=== PATIENT | female | born 1990 | race Caucasian/White ===

== ENCOUNTER 2017-09-03 07:00 | Day surgery (SDC) | payer MEDICAID ==
[~2017-09-03] VITALS: Ht 160 cm; Wt 61.1 kg
[~2017-09-03 07:00] MED LIST: ACET500T71 PO; ACID1TAB7 PO; CEFA2PLA10 IV; FOLI-17 PO; GABA-826 PO; IBUP-1484 PO; MULT1TAB60 PO; NICO-486 TD; OXYC1TAB7 PO; THIA100T6 PO
[2017-09-03] MEDS ORDERED: SODIUM CHLORIDE 0.9% 1,000 ML IV SCH (07:31)
[2017-09-03 07:32] VITALS: BP 109/75
[2017-09-03] MEDS ORDERED: LIDOCAINE-MPF 1%, 5ML ONE (08:09)
== END 2017-09-03 09:30 ==
LOC: OUT 07:00
PROVIDERS: ATTEND Internal Medicine Geriatric Medicine
DX: Z45.2 Encounter for adjustment and management of vascular access device (principal); L02.511 Cutaneous abscess of right hand; Z72.89 Other problems related to lifestyle
CPT/HCPCS: 36589; 77001; J7030

== ENCOUNTER 2017-12-02 15:24 | Inpatient (IN) | payer MEDICAID, OTHER ==
[~2017-12-02] VITALS: Ht 160 cm; Wt 63.2 kg
[2017-12-02] MEDS ORDERED: ONDANSETRON 2MG/ML, 2ML IVPush ONE (16:00)
[2017-12-02] MEDS ORDERED: LORazepam 2 MG/ML, 1ML IVPush ONE ×2 (16:00)
[2017-12-02] MEDS ORDERED: SODIUM CHLORIDE 0.9% 1,000ML IVBOLUS ONE ×2 (16:00→18:00)
[2017-12-02] MEDS ORDERED: SODIUM CHLORIDE FLUSH 10ML SYR IVF ONE (16:00)
[2017-12-02] MEDS ORDERED: CITA10TA8 PO (16:05)
[2017-12-02] MEDS ORDERED: ONDANSETRON 2MG/ML, 2ML ONE (16:17)
[2017-12-02] MEDS ORDERED: LORazepam 2 MG/ML, 1ML ONE (16:17)
[2017-12-02 16:27] LABS: ALANINE AMINOTRANSFERASE 112 U/L (12-78); ALBUMIN 4.7 g/dL (3.4-5.0); ANION GAP 19 mmol/L (5-15); CALCIUM 9.6 mg/dL (8.5-10.1); CHLORIDE 98 mmol/L (98-107); CREATININE 0.73 mg/dL (0.55-1.02)
[2017-12-02 16:30] LABS: BASOPHILS # (AUTO) 0.02 x10^3/uL (0-0.1); BASOPHILS % (AUTO) 1 % (0-1); EOSINOPHILS # (AUTO) 0.01 x10^3/uL (0-0.4); EOSINOPHILS % (AUTO) 0 % (1-7); LYMPHOCYTES # (AUTO) 0.94 x10^3/uL (1-3.4); LYMPHOCYTES % (AUTO) 25 % (22-44); MD NO; MEAN CORPUSCULAR HEMOGLOBIN 30.8 pg (27.0-34.8); MEAN CORPUSCULAR HGB CONC 33.9 g/dL (32.4-35.8); MEAN CORPUSCULAR VOLUME 90.6 fL (80-100); MEAN PLATELET VOLUME 7.7 fL (7.4-10.4); MONOCYTES # (AUTO) 0.51 x10^3/uL (0.2-0.8); MONOCYTES % (AUTO) 14 % (2-9); NEUTROPHILS % (AUTO) 60 % (42-75); PLATELET COUNT 179 x10^3/uL (130-400); RED BLOOD COUNT 5.05 x10^6/uL (3.82-5.3); RED CELL DISTRIBUTION WIDTH 16.9 % (9.6-15.2)
[2017-12-02] MEDS ORDERED: THIAMINE 100MG TABLET PO ONE (16:30)
[2017-12-02 16:32] LABS: ALKALINE PHOSPHATASE 152 U/L (45-117); BILIRUBIN,TOTAL 0.9 mg/dL (0.2-1.0); TOTAL PROTEIN 8.6 g/dL (6.4-8.2)
[2017-12-02] MEDS ORDERED: THIAMINE 100MG TABLET ONE (17:51)
[2017-12-02] MEDS ORDERED: DIAZEPAM 5 MG/ML, 2ML IVPush PRN (18:00)
[2017-12-02] MEDS ORDERED: morphine SULFATE 10 MG/ML, 1ML IVPush PRN (18:30)
[2017-12-02] MEDS: HEPARIN 5,000 UNITS/ML, 1ML SQ SCH (18:30)
[2017-12-02] MEDS ORDERED: LORazepam 2 MG/ML, 1ML IVPush PRN (18:30)
[2017-12-02] MEDS ORDERED: CHLORDIAZEPOXIDE 25 MG CAPSULE PO PRN (18:30)
[2017-12-02] MEDS ORDERED: ONDANSETRON 2MG/ML, 2ML IVPush PRN (18:30)
[2017-12-02] MEDS ORDERED: BISACODYL 10 MG SUPP PR PRN (18:30)
[2017-12-02 19:24] VITALS: BP 99/62
[2017-12-02] MEDS ORDERED: POTASSIUM CHLORIDE 20 MEQ, MAGNESIUM SULFATE 2 GM, THIAMINE 200 MG, MVI ADULT 10 ML, FO... IV SCH (20:00)
[2017-12-02] MEDS: NICOTINE 14MG/24 HR PATCH.TD24 TD SCH (21:14)
[2017-12-03] MEDS: HEPARIN 5,000 UNITS/ML, 1ML SQ SCH ×3 (02:30→22:49)
[2017-12-03 03:04] VITALS: BP 97/59
[2017-12-03 04:39] LABS: MEAN CORPUSCULAR HEMOGLOBIN 30.2 pg (27.0-34.8); MEAN CORPUSCULAR HGB CONC 33.6 g/dL (32.4-35.8); MEAN PLATELET VOLUME 7.5 fL (7.4-10.4); PLATELET COUNT 116 x10^3/uL (130-400); RED BLOOD COUNT 3.76 x10^6/uL (3.82-5.3); RED CELL DISTRIBUTION WIDTH 17.2 % (9.6-15.2)
[2017-12-03 04:45] LABS: ALBUMIN 3.3 g/dL (3.4-5.0); ANION GAP 11 mmol/L (5-15); CALCIUM 7.5 mg/dL (8.5-10.1); CHLORIDE 106 mmol/L (98-107)
[2017-12-03 04:50] LABS: ALANINE AMINOTRANSFERASE 89 U/L (12-78); ALKALINE PHOSPHATASE 105 U/L (45-117); BILIRUBIN,TOTAL 0.9 mg/dL (0.2-1.0); CREATININE 0.43 mg/dL (0.55-1.02)
[2017-12-03 05:50] LABS: MD YES
[2017-12-03 05:54] LABS: EOS#(MANUAL) 0.05 x10^3/uL (0.0-0.4); EOS% (MANUAL) 2 % (1-7)
[2017-12-03 05:55] LABS: BASOS#(MANUAL) 0.05 x10^3/uL (0-0.1); BASOS% (MANUAL) 2 % (0-1); LYMPH#(MANUAL) 0.81 x10^3/uL (1-3.4); LYMPHS% (MANUAL) 35 % (22-44); MONOS#(MANUAL) 0.21 x10^3/uL (0.3-2.7); MONOS% (MANUAL) 9 % (2-9); SEGS% (MANUAL) 52 % (42-75)
[2017-12-03 05:56] LABS: <PLATELET ESTIMATE> DECREASED; <PLT MORPHOLOGY> NORMAL PLT MORPH; ANISOCYTOSIS 1+
[2017-12-03 08:25] VITALS: BP 114/76
[2017-12-03] MEDS ORDERED: LORazepam 2 MG/ML, 1ML IV PRN ×5 (08:30)
[2017-12-03] MEDS ORDERED: LORazepam 1MG TABLET PO PRN ×3 (08:30)
[2017-12-03] MEDS ORDERED: CHLORDIAZEPOXIDE 10 MG CAPSULE PO PRN ×2 (11:00)
[2017-12-03] MEDS ORDERED: GUAIFENESIN 100 MG/5 ML, 10ML UDC PO PRN (11:00)
[2017-12-03 13:44] VITALS: BP 132/66
[2017-12-03] MEDS: PANTOPRAZOLE 40 MG IV IVPush SCH (13:54)
[2017-12-03 19:02] VITALS: BP 122/86
[2017-12-03] MEDS: LORazepam 1MG TABLET PO PRN (21:01)
[2017-12-03] MEDS: NICOTINE 14MG/24 HR PATCH.TD24 TD SCH (21:01)
[2017-12-03] MEDS: POTASSIUM CHLORIDE 20 MEQ, MAGNESIUM SULFATE 1 GM, MVI ADULT 10 ML, THIAMINE 200 MG, FO... IV SCH (22:49)
[2017-12-04 01:45] VITALS: BP 123/89
[2017-12-04 05:54] LABS: MEAN PLATELET VOLUME 8.5 fL (7.4-10.4); PLATELET COUNT 101 x10^3/uL (130-400); RED BLOOD COUNT 4.01 x10^6/uL (3.82-5.3); RED CELL DISTRIBUTION WIDTH 16.8 % (9.6-15.2)
[2017-12-04 06:03] LABS: CHLORIDE 104 mmol/L (98-107)
[2017-12-04 06:10] LABS: ALANINE AMINOTRANSFERASE 118 U/L (12-78); ALBUMIN 3.5 g/dL (3.4-5.0); ALKALINE PHOSPHATASE 127 U/L (45-117); ANION GAP 9 mmol/L (5-15); BILIRUBIN,TOTAL 1.2 mg/dL (0.2-1.0); CALCIUM 8.6 mg/dL (8.5-10.1); CREATININE 0.45 mg/dL (0.55-1.02); TOTAL PROTEIN 6.6 g/dL (6.4-8.2)
[2017-12-04 06:17] LABS: BASOPHILS # (AUTO) 0.04 x10^3/uL (0-0.1); BASOPHILS % (AUTO) 2 % (0-1); EOSINOPHILS # (AUTO) 0.05 x10^3/uL (0-0.4); EOSINOPHILS % (AUTO) 2 % (1-7); LYMPHOCYTES # (AUTO) 0.74 x10^3/uL (1-3.4); LYMPHOCYTES % (AUTO) 34 % (22-44); MD SCAN; MONOCYTES % (AUTO) 9 % (2-9); NEUTROPHILS # (AUTO) 1.16 x10^3/uL (1.8-6.8); NEUTROPHILS % (AUTO) 53 % (42-75)
[2017-12-04] MEDS: HEPARIN 5,000 UNITS/ML, 1ML SQ SCH ×3 (06:19→21:31)
[2017-12-04 07:33] VITALS: BP 112/66
[2017-12-04] MEDS: PANTOPRAZOLE 40 MG IV IVPush SCH (08:51)
[2017-12-04] MEDS: LORazepam 1MG TABLET PO PRN ×2 (08:51→13:07)
[2017-12-04] MEDS ORDERED: NEUTRA PHOS K 250 MG TABLET PO ONE (12:30)
[2017-12-04 14:30] VITALS: BP 119/83
[2017-12-04] MEDS: CHLORDIAZEPOXIDE 10 MG CAPSULE PO SCH ×2 (16:00→21:00)
[2017-12-04 18:44] VITALS: BP 124/85
[2017-12-04] MEDS: NICOTINE 14MG/24 HR PATCH.TD24 TD SCH (21:31)
[2017-12-04] MEDS: POTASSIUM CHLORIDE 20 MEQ, MAGNESIUM SULFATE 1 GM, MVI ADULT 10 ML, THIAMINE 200 MG, FO... IV SCH (21:32)
[2017-12-05] MEDS: LORazepam 0.5MG TABLET PO PRN (00:29)
[2017-12-05 02:57] VITALS: BP 100/67
[2017-12-05 05:35] LABS: INTERNATIONAL NORMALIZED RATIO 0.9 (0.93-1.1); PROTHROMBIN TIME 9.4 Seconds (9.6-11.5)
[2017-12-05 05:38] LABS: MEAN CORPUSCULAR HEMOGLOBIN 30.9 pg (27.0-34.8); MEAN CORPUSCULAR HGB CONC 33.7 g/dL (32.4-35.8); MEAN CORPUSCULAR VOLUME 91.7 fL (80-100); MEAN PLATELET VOLUME 9.5 fL (7.4-10.4); PLATELET COUNT 107 x10^3/uL (130-400); RED BLOOD COUNT 4.32 x10^6/uL (3.82-5.3); RED CELL DISTRIBUTION WIDTH 16.5 % (9.6-15.2)
[2017-12-05 05:52] LABS: ALBUMIN 3.6 g/dL (3.4-5.0); ANION GAP 10 mmol/L (5-15); CALCIUM 8.8 mg/dL (8.5-10.1); CHLORIDE 105 mmol/L (98-107)
[2017-12-05] MEDS: HEPARIN 5,000 UNITS/ML, 1ML SQ SCH ×3 (06:00→20:54)
[2017-12-05 06:03] LABS: BASOPHILS # (AUTO) 0.02 x10^3/uL (0-0.1); BASOPHILS % (AUTO) 1 % (0-1); EOSINOPHILS # (AUTO) 0.04 x10^3/uL (0-0.4); EOSINOPHILS % (AUTO) 2 % (1-7); LYMPHOCYTES # (AUTO) 0.93 x10^3/uL (1-3.4); LYMPHOCYTES % (AUTO) 42 % (22-44); MD SCAN; MONOCYTES # (AUTO) 0.16 x10^3/uL (0.2-0.8); MONOCYTES % (AUTO) 7 % (2-9); NEUTROPHILS # (AUTO) 1.08 x10^3/uL (1.8-6.8); NEUTROPHILS % (AUTO) 48 % (42-75)
[2017-12-05 06:06] LABS: ALANINE AMINOTRANSFERASE 149 U/L (12-78); ALKALINE PHOSPHATASE 135 U/L (45-117); BILIRUBIN,TOTAL 0.8 mg/dL (0.2-1.0); CREATININE 0.42 mg/dL (0.55-1.02); TOTAL PROTEIN 6.8 g/dL (6.4-8.2)
[2017-12-05] MEDS: CHLORDIAZEPOXIDE 10 MG CAPSULE PO SCH ×3 (06:22→11:52)
[2017-12-05 08:30] VITALS: BP 102/68
[2017-12-05] MEDS: PANTOPRAZOLE 20MG TABLET PO SCH (08:35)
[2017-12-05] MEDS ORDERED: POTASSIUM CHLORIDE 20 MEQ TAB.ER.PRT PO ONE (09:00)
[2017-12-05 14:30] VITALS: BP 115/76
[2017-12-05] MEDS: LORazepam 1MG TABLET PO PRN ×2 (15:11→20:54)
[2017-12-05 19:39] VITALS: BP 114/81
[2017-12-05] MEDS: NICOTINE 14MG/24 HR PATCH.TD24 TD SCH (20:54)
[2017-12-06] MEDS: LORazepam 1MG TABLET PO PRN (00:57)
[2017-12-06 01:45] VITALS: BP 118/84
[2017-12-06 05:08] LABS: CHLORIDE 107 mmol/L (98-107)
[2017-12-06 05:17] LABS: ALANINE AMINOTRANSFERASE 189 U/L (12-78); ALBUMIN 3.5 g/dL (3.4-5.0); ALKALINE PHOSPHATASE 124 U/L (45-117); ANION GAP 9 mmol/L (5-15); BILIRUBIN,TOTAL 0.7 mg/dL (0.2-1.0); CREATININE 0.48 mg/dL (0.55-1.02); MEAN CORPUSCULAR HEMOGLOBIN 31.4 pg (27.0-34.8); MEAN CORPUSCULAR HGB CONC 34.2 g/dL (32.4-35.8); MEAN PLATELET VOLUME 9.4 fL (7.4-10.4); PLATELET COUNT 116 x10^3/uL (130-400); RED BLOOD COUNT 4.24 x10^6/uL (3.82-5.3); RED CELL DISTRIBUTION WIDTH 16.9 % (9.6-15.2); TOTAL PROTEIN 6.7 g/dL (6.4-8.2)
[2017-12-06] MEDS: HEPARIN 5,000 UNITS/ML, 1ML SQ SCH (05:42)
[2017-12-06] MEDS: LORazepam 0.5MG TABLET PO PRN (05:42)
[2017-12-06 06:16] LABS: BASOPHILS # (AUTO) 0.01 x10^3/uL (0-0.1); BASOPHILS % (AUTO) 0 % (0-1); EOSINOPHILS # (AUTO) 0.04 x10^3/uL (0-0.4); EOSINOPHILS % (AUTO) 1 % (1-7); LYMPHOCYTES # (AUTO) 1.02 x10^3/uL (1-3.4); LYMPHOCYTES % (AUTO) 34 % (22-44); MD SCAN; MONOCYTES % (AUTO) 10 % (2-9); NEUTROPHILS # (AUTO) 1.65 x10^3/uL (1.8-6.8); NEUTROPHILS % (AUTO) 55 % (42-75)
[2017-12-06] MEDS ORDERED: LORazepam 1MG TABLET PO PRN (07:30)
[2017-12-06 08:30] VITALS: BP 102/71
[2017-12-06] MEDS ORDERED: FOLIC ACID 1 MG TABLET PO SCH (09:00)
[2017-12-06] MEDS ORDERED: THIAMINE 100MG TABLET PO SCH (09:00)
[2017-12-06] MEDS ORDERED: MULTIVIT.W/IRON, MINERALS ORAL SOL PO SCH (09:00)
[2017-12-06] MEDS: PANTOPRAZOLE 20MG TABLET PO SCH (09:36)
== END 2017-12-06 12:57 | disposition home or self-care (01) | DRG 896 ==
LOC: ED 16:48 → EDIP 17:54 → 3NE 18:46
PROVIDERS: ADMIT Hospitalist; ATTEND Hospitalist
DX: F10.239 Alcohol dependence with withdrawal, unspecified (principal); K85.20 Alcohol induced acute pancreatitis without necrosis or infection; D61.818 Other pancytopenia; K29.20 Alcoholic gastritis without bleeding; K70.10 Alcoholic hepatitis without ascites; E83.39 Other disorders of phosphorus metabolism; F17.210 Nicotine dependence, cigarettes, uncomplicated; R56.9 Unspecified convulsions; Z59.0 Homelessness; Z91.14 Patient's other noncompliance with medication regimen
CPT/HCPCS: 36415; 99285; J7042; 71045; 76700; 80053; 80074; 83690; 83735; 84100; 84443; 84703; 85025; 85610; 93005; 96361; 96374; 96375; J1644; J2405; J3360; J3411; J3475; J3480; C9113; J2060; J7030; Q0177

== ENCOUNTER 2018-01-02 16:27 | Inpatient (IN) | payer MEDICAID, OTHER ==
[~2018-01-02] VITALS: Ht 160 cm; Wt 62.1 kg
[~2018-01-02 16:27] MED LIST changes: +CITA10TA8 PO; -THIA100T6 PO; +THIA100T67 PO
[2018-01-02 17:14] LABS: BASOPHILS # (AUTO) 0.03 x10^3/uL (0-0.1); BASOPHILS % (AUTO) 0 % (0-1); EOSINOPHILS % (AUTO) 0 % (1-7); LYMPHOCYTES # (AUTO) 0.73 x10^3/uL (1-3.4); LYMPHOCYTES % (AUTO) 9 % (22-44); MD NO; MEAN CORPUSCULAR HEMOGLOBIN 31.7 pg (27.0-34.8); MEAN CORPUSCULAR HGB CONC 34.8 g/dL (32.4-35.8); MEAN CORPUSCULAR VOLUME 91.1 fL (80-100); MEAN PLATELET VOLUME 7.9 fL (7.4-10.4); MONOCYTES # (AUTO) 0.45 x10^3/uL (0.2-0.8); MONOCYTES % (AUTO) 6 % (2-9); NEUTROPHILS % (AUTO) 85 % (42-75); PLATELET COUNT 325 x10^3/uL (130-400); RED BLOOD COUNT 4.22 x10^6/uL (3.82-5.3); RED CELL DISTRIBUTION WIDTH 14.8 % (9.6-15.2)
[2018-01-02 17:15] LABS: INTERNATIONAL NORMALIZED RATIO 1.1 (0.93-1.1); PROTHROMBIN TIME 11.3 Seconds (9.6-11.5)
[2018-01-02 17:18] LABS: ALANINE AMINOTRANSFERASE 20 U/L (12-78); ALBUMIN 4.1 g/dL (3.4-5.0); ANION GAP 21 mmol/L (5-15); CALCIUM 8.6 mg/dL (8.5-10.1); CHLORIDE 101 mmol/L (98-107)
[2018-01-02 17:23] LABS: ALKALINE PHOSPHATASE 92 U/L (45-117); BILIRUBIN,TOTAL 0.6 mg/dL (0.2-1.0); CREATININE 0.73 mg/dL (0.55-1.02); TOTAL PROTEIN 7.7 g/dL (6.4-8.2)
[2018-01-02] MEDS ORDERED: SODIUM CHLORIDE 0.9% 1,000ML IVBOLUS ONE (19:00)
[2018-01-02] MEDS ORDERED: PROMETHAZINE 25 MG/ML, 1ML IM ONE (19:00)
[2018-01-02] MEDS ORDERED: PANTOPRAZOLE 40 MG IV IVPush ONE (19:00)
[2018-01-02] MEDS ORDERED: PANTOPRAZOLE 40 MG IV ONE (19:08)
[2018-01-02] MEDS ORDERED: PROMETHAZINE 25 MG/ML, 1ML ONE (19:08)
[2018-01-02 19:32] LABS: MICROSCOPIC AUTO
[2018-01-02 19:48] LABS: CULTURE INDICATED? YES
[2018-01-02] MEDS ORDERED: CEFTRIAXONE PMX 1GM/50ML 50 ML ONE (19:55)
[2018-01-02] MEDS ORDERED: KETOROLAC 30 MG/1 ML IVPush ONE (20:00)
[2018-01-02] MEDS ORDERED: NS + 20MEQ KCL 1,000 ML IV SCH (20:00)
[2018-01-02] MEDS ORDERED: CEFTRIAXONE 1,000 MG in SODIUM CHLORIDE 0.9% 50 ML IV ONE (20:00)
[2018-01-02] MEDS ORDERED: KETOROLAC 30 MG/1 ML ONE (20:04)
[2018-01-02] MEDS ORDERED: NS + 20MEQ KCL 1,000 ML IV ONE (20:05)
[2018-01-02] MEDS ORDERED: ONDANSETRON 2MG/ML, 2ML IVPush PRN (20:30)
[2018-01-02] MEDS ORDERED: morphine SULFATE 10 MG/ML, 1ML IVPush PRN (20:30)
[2018-01-02] MEDS ORDERED: POTASSIUM CHLORIDE 40 MEQ in D5%-0.9% NACL 1,000 ML IV SCH (20:30)
[2018-01-02] MEDS ORDERED: LORazepam 2 MG/ML, 1ML IVPush PRN (20:30)
[2018-01-02] MEDS ORDERED: PROMETHAZINE 25 MG/ML, 1ML IM PRN (20:30)
[2018-01-02] MEDS ORDERED: ONDANSETRON ODT 4 MG PO PRN (20:30)
[2018-01-02] MEDS: POTASSIUM CHLORIDE 20 MEQ, MAGNESIUM SULFATE 2 GM, THIAMINE 100 MG, MVI ADULT 10 ML, FO... IV SCH (21:55)
[2018-01-03 00:21] VITALS: BP 108/74
[2018-01-03 01:57] VITALS: BP 109/69
[2018-01-03] MEDS: POTASSIUM CHLORIDE 40 MEQ in D5%-0.9% NACL 1,000 ML IV SCH ×3 (04:31→15:45)
[2018-01-03 06:03] LABS: ALBUMIN 3.3 g/dL (3.4-5.0); ANION GAP 8 mmol/L (5-15); CALCIUM 7.8 mg/dL (8.5-10.1); CHLORIDE 110 mmol/L (98-107)
[2018-01-03 06:07] LABS: ALANINE AMINOTRANSFERASE 15 U/L (12-78); ALKALINE PHOSPHATASE 87 U/L (45-117); BILIRUBIN,TOTAL 1.2 mg/dL (0.2-1.0); CREATININE 0.58 mg/dL (0.55-1.02); TOTAL PROTEIN 6.3 g/dL (6.4-8.2)
[2018-01-03 07:17] VITALS: BP 118/81
[2018-01-03] MEDS: PANTOPRAZOLE 40 MG IV IVPush SCH (07:30)
[2018-01-03] MEDS: SUCRALFATE 1 GM/10 ML UDC PO SCH ×3 (10:54→19:42)
[2018-01-03 13:13] VITALS: BP 120/85
[2018-01-03] MEDS: POTASSIUM CHLORIDE 20 MEQ, MAGNESIUM SULFATE 2 GM, THIAMINE 100 MG, MVI ADULT 10 ML, FO... IV SCH (19:42)
[2018-01-03 20:13] VITALS: BP 118/81
[2018-01-04] MEDS: POTASSIUM CHLORIDE 40 MEQ in D5%-0.9% NACL 1,000 ML IV SCH (02:45)
[2018-01-04 02:52] VITALS: BP 104/69
[2018-01-04] MEDS ORDERED: CEFTRIAXONE 2 GM in SODIUM CHLORIDE 0.9% 50 ML IV SCH (06:00)
[2018-01-04 07:38] VITALS: BP 130/85
[2018-01-04] MEDS: PANTOPRAZOLE 40 MG IV IVPush SCH (08:30)
[2018-01-04] MEDS: SUCRALFATE 1 GM/10 ML UDC PO SCH (08:33)
== END 2018-01-04 11:28 | disposition home or self-care (01) | DRG 640 ==
LOC: ED 19:47 → EDIP 20:10 → SUATTDRO 20:10 → 3NE 20:52
PROVIDERS: ADMIT Hospitalist; ATTEND Hospitalist
DX: E87.6 Hypokalemia (principal); K22.6 Gastro-esophageal laceration-hemorrhage syndrome; E87.2 Acidosis; E86.9 Volume depletion, unspecified; F10.20 Alcohol dependence, uncomplicated; F32.9 Major depressive disorder, single episode, unspecified; E88.89 Other specified metabolic disorders; R11.2 Nausea with vomiting, unspecified
CPT/HCPCS: 36415; 99285; J7042; 80053; 80307; 81001; 83690; 83735; 84100; 84703; 85025; 85610; 85730; 87077; 87086; 87186; 96361; 96365; 96372; 96375; J0696; J1885; J2550; J3411; J3475; J3480; Q0162; C9113; J7030

== ENCOUNTER 2018-01-15 14:04 | Inpatient (IN) | payer MEDICAID ==
[~2018-01-15] VITALS: Ht 160 cm; Wt 58.8 kg
[2018-01-15] MEDS ORDERED: SODIUM CHLORIDE FLUSH 10ML SYR IVF ONE ×2 (15:00→16:00)
[2018-01-15] MEDS ORDERED: LORazepam 2 MG/ML, 1ML ONE ×2 (15:03→17:18)
[2018-01-15] MEDS: LORazepam 2 MG/ML, 1ML IVPush PRN ×2 (15:06→16:20)
[2018-01-15 15:16] LABS: BASOPHILS # (AUTO) 0.01 x10^3/uL (0-0.1); BASOPHILS % (AUTO) 0 % (0-1); EOSINOPHILS # (AUTO) 0.01 x10^3/uL (0-0.4); EOSINOPHILS % (AUTO) 0 % (1-7); LYMPHOCYTES # (AUTO) 1.01 x10^3/uL (1-3.4); LYMPHOCYTES % (AUTO) 25 % (22-44); MD NO; MEAN CORPUSCULAR HGB CONC 34.7 g/dL (32.4-35.8); MEAN CORPUSCULAR VOLUME 92.3 fL (80-100); MONOCYTES # (AUTO) 0.37 x10^3/uL (0.2-0.8); MONOCYTES % (AUTO) 9 % (2-9); NEUTROPHILS # (AUTO) 2.61 x10^3/uL (1.8-6.8); NEUTROPHILS % (AUTO) 65 % (42-75); PLATELET COUNT 406 x10^3/uL (130-400); RED BLOOD COUNT 4.49 x10^6/uL (3.82-5.3); RED CELL DISTRIBUTION WIDTH 14.6 % (9.6-15.2)
[2018-01-15 15:27] LABS: ALANINE AMINOTRANSFERASE 71 U/L (12-78); ALBUMIN 4.5 g/dL (3.4-5.0); ANION GAP 18 mmol/L (5-15); CALCIUM 8.4 mg/dL (8.5-10.1); CHLORIDE 102 mmol/L (98-107); CREATININE 0.63 mg/dL (0.55-1.02)
[2018-01-15 15:32] LABS: ALKALINE PHOSPHATASE 129 U/L (45-117); BILIRUBIN,TOTAL 0.7 mg/dL (0.2-1.0); TOTAL PROTEIN 8.8 g/dL (6.4-8.2)
[2018-01-15] MEDS ORDERED: SODIUM CHLORIDE 0.9% 1,000 ML IV ONE ×2 (15:42→16:00)
[2018-01-15] MEDS ORDERED: SODIUM CHLORIDE 0.9% 1,000ML IVBOLUS ONE (16:00)
[2018-01-15] MEDS ORDERED: LORazepam 2 MG/ML, 1ML IV PRN ×4 (16:30)
[2018-01-15] MEDS ORDERED: ONDANSETRON 2MG/ML, 2ML IVPush PRN (16:30)
[2018-01-15] MEDS ORDERED: GUAIFENESIN/COD200MG-20MG/10ML LIQUID PO PRN (16:30)
[2018-01-15] MEDS ORDERED: hydrALAzine 20 MG/ML, 1ML IVPush PRN (16:30)
[2018-01-15] MEDS ORDERED: KETOROLAC 30 MG/1 ML IV PRN (16:30)
[2018-01-15] MEDS ORDERED: DOCUSATE 100 MG CAPSULE PO PRN ×2 (16:30)
[2018-01-15] MEDS ORDERED: IBUPROFEN 600 MG TABLET PO PRN ×2 (16:30→17:12)
[2018-01-15] MEDS ORDERED: THIAMINE 200 MG in DEXTROSE 5% 50 ML IVPB ONE (16:30)
[2018-01-15] MEDS ORDERED: POTASSIUM CHLORIDE 20 MEQ TAB.ER.PRT PO ONE (16:30)
[2018-01-15] MEDS: LORazepam 2 MG/ML, 1ML IV PRN (17:21)
[2018-01-15] MEDS ORDERED: POTASSIUM CHLORIDE 20 MEQ TAB.ER.PRT ONE (17:22)
[2018-01-15] MEDS ORDERED: ENOXAPARIN 40 MG/0.4 ML ONE (17:22)
[2018-01-15] MEDS ORDERED: NICOTINE 7 MG/24 HR PATCH.TD24 ONE (17:22)
[2018-01-15] MEDS: NICOTINE 7 MG/24 HR PATCH.TD24 TD SCH (17:23)
[2018-01-15] MEDS: ENOXAPARIN 40 MG/0.4 ML SQ SCH (17:23)
[2018-01-15 18:36] VITALS: BP 105/74
[2018-01-15 20:12] VITALS: BP 105/74
[2018-01-15] MEDS ORDERED: POTASSIUM CHLORIDE 20 MEQ, MVI ADULT 10 ML, FOLIC ACID 1 MG, MAGNESIUM SULFATE 1 GM in ... IV SCH (21:00)
[2018-01-16 00:16] VITALS: BP 112/72
[2018-01-16 06:07] LABS: ALANINE AMINOTRANSFERASE 72 U/L (12-78); ALBUMIN 3.4 g/dL (3.4-5.0); ANION GAP 13 mmol/L (5-15); CALCIUM 7.8 mg/dL (8.5-10.1); CHLORIDE 106 mmol/L (98-107); CREATININE 0.49 mg/dL (0.55-1.02)
[2018-01-16 06:09] LABS: MEAN CORPUSCULAR HEMOGLOBIN 31.4 pg (27.0-34.8); MEAN CORPUSCULAR HGB CONC 34.3 g/dL (32.4-35.8); MEAN CORPUSCULAR VOLUME 91.7 fL (80-100); MEAN PLATELET VOLUME 7.4 fL (7.4-10.4); PLATELET COUNT 264 x10^3/uL (130-400); RED BLOOD COUNT 3.57 x10^6/uL (3.82-5.3); RED CELL DISTRIBUTION WIDTH 14.7 % (9.6-15.2)
[2018-01-16 06:10] LABS: ALKALINE PHOSPHATASE 108 U/L (45-117); BILIRUBIN,TOTAL 0.7 mg/dL (0.2-1.0); TOTAL PROTEIN 6.5 g/dL (6.4-8.2)
[2018-01-16 06:39] LABS: BASOPHILS # (AUTO) 0.02 x10^3/uL (0-0.1); BASOPHILS % (AUTO) 1 % (0-1); EOSINOPHILS # (AUTO) 0.04 x10^3/uL (0-0.4); EOSINOPHILS % (AUTO) 1 % (1-7); LYMPHOCYTES # (AUTO) 0.72 x10^3/uL (1-3.4); LYMPHOCYTES % (AUTO) 25 % (22-44); MD SCAN; MONOCYTES # (AUTO) 0.21 x10^3/uL (0.2-0.8); MONOCYTES % (AUTO) 7 % (2-9); NEUTROPHILS # (AUTO) 1.85 x10^3/uL (1.8-6.8); NEUTROPHILS % (AUTO) 65 % (42-75)
[2018-01-16 07:01] VITALS: BP 120/85
[2018-01-16] MEDS: PANTOPRAZOLE 40 MG IV IVPush SCH (08:28)
[2018-01-16] MEDS: LORazepam 2 MG/ML, 1ML IV PRN ×3 (08:38→17:47)
[2018-01-16] MEDS ORDERED: NEUTRA PHOS K 250 MG TABLET PO SCH (09:00)
[2018-01-16] MEDS ORDERED: PROMETHAZINE 25 MG/ML, 1ML IM PRN (09:00)
[2018-01-16] MEDS ORDERED: SODIUM PHOSPHATE 20 MMOL in SODIUM CHLORIDE 0.9% 500 ML IV ONE (12:30)
[2018-01-16] MEDS ORDERED: MAGNESIUM SULFATE PMX 2GM/50ML 50 ML IV ONE (12:30)
[2018-01-16] MEDS: GUAIFENESIN 200 MG TABLET PO SCH ×3 (12:53→20:31)
[2018-01-16 14:57] VITALS: BP 111/79
[2018-01-16] MEDS: ENOXAPARIN 40 MG/0.4 ML SQ SCH (16:30)
[2018-01-16] MEDS: NICOTINE 7 MG/24 HR PATCH.TD24 TD SCH (16:46)
[2018-01-16 18:54] VITALS: BP 131/70
[2018-01-16 20:30] VITALS: BP_SYST 115; BP_SYST 118; BP_SYST 123; BP_DIAS 76; BP_DIAS 81; BP_DIAS 85
[2018-01-17 02:30] VITALS: BP 116/78
[2018-01-17 05:24] LABS: BASOPHILS # (AUTO) 0.02 x10^3/uL (0-0.1); BASOPHILS % (AUTO) 1 % (0-1); EOSINOPHILS # (AUTO) 0.06 x10^3/uL (0-0.4); EOSINOPHILS % (AUTO) 2 % (1-7); LYMPHOCYTES # (AUTO) 0.97 x10^3/uL (1-3.4); LYMPHOCYTES % (AUTO) 30 % (22-44); MD NO; MEAN CORPUSCULAR HEMOGLOBIN 31.9 pg (27.0-34.8); MEAN CORPUSCULAR HGB CONC 34.7 g/dL (32.4-35.8); MEAN CORPUSCULAR VOLUME 91.7 fL (80-100); MEAN PLATELET VOLUME 7.7 fL (7.4-10.4); MONOCYTES # (AUTO) 0.21 x10^3/uL (0.2-0.8); MONOCYTES % (AUTO) 7 % (2-9); NEUTROPHILS # (AUTO) 2.01 x10^3/uL (1.8-6.8); NEUTROPHILS % (AUTO) 62 % (42-75); PLATELET COUNT 216 x10^3/uL (130-400); RED CELL DISTRIBUTION WIDTH 14.6 % (9.6-15.2)
[2018-01-17 05:28] LABS: CHLORIDE 105 mmol/L (98-107)
[2018-01-17] MEDS: GUAIFENESIN 200 MG TABLET PO SCH ×4 (05:33→20:19)
[2018-01-17 05:35] LABS: ALANINE AMINOTRANSFERASE 58 U/L (12-78); ALBUMIN 3.5 g/dL (3.4-5.0); ALKALINE PHOSPHATASE 103 U/L (45-117); CALCIUM 8.6 mg/dL (8.5-10.1); CREATININE 0.38 mg/dL (0.55-1.02); TOTAL PROTEIN 6.6 g/dL (6.4-8.2)
[2018-01-17 05:52] LABS: ANION GAP 5 mmol/L (5-15)
[2018-01-17] MEDS ORDERED: POTASSIUM CHLORIDE 20 MEQ in SODIUM CHLORIDE 0.9% 250 ML IV ONE (08:00)
[2018-01-17 08:04] VITALS: BP 122/88
[2018-01-17 08:05] VITALS: BP 121/87
[2018-01-17 08:06] VITALS: BP 121/90
[2018-01-17] MEDS ORDERED: THIAMINE 100 MG in DEXTROSE 5% 50 ML IVPB SCH (09:00)
[2018-01-17] MEDS: LORazepam 2 MG/ML, 1ML IV PRN (09:21)
[2018-01-17] MEDS: PANTOPRAZOLE 40 MG IV IVPush SCH (09:21)
[2018-01-17 13:23] VITALS: BP_SYST 126; BP_SYST 26; BP_DIAS 88
[2018-01-17] MEDS: ENOXAPARIN 40 MG/0.4 ML SQ SCH (16:17)
[2018-01-17] MEDS: NICOTINE 7 MG/24 HR PATCH.TD24 TD SCH (16:17)
[2018-01-17 20:57] VITALS: BP 141/97
[2018-01-18 01:28] VITALS: BP 122/86
[2018-01-18] MEDS: GUAIFENESIN 200 MG TABLET PO SCH ×4 (05:16→21:10)
[2018-01-18 05:40] LABS: CHLORIDE 104 mmol/L (98-107)
[2018-01-18 05:47] LABS: ALANINE AMINOTRANSFERASE 61 U/L (12-78); ALBUMIN 3.8 g/dL (3.4-5.0); ALKALINE PHOSPHATASE 96 U/L (45-117); ANION GAP 9 mmol/L (5-15); BILIRUBIN,TOTAL 0.5 mg/dL (0.2-1.0); CALCIUM 9.2 mg/dL (8.5-10.1); CREATININE 0.37 mg/dL (0.55-1.02); TOTAL PROTEIN 7.3 g/dL (6.4-8.2)
[2018-01-18 05:49] LABS: BASOPHILS # (AUTO) 0.02 x10^3/uL (0-0.1); BASOPHILS % (AUTO) 1 % (0-1); EOSINOPHILS # (AUTO) 0.07 x10^3/uL (0-0.4); EOSINOPHILS % (AUTO) 2 % (1-7); LYMPHOCYTES # (AUTO) 0.83 x10^3/uL (1-3.4); LYMPHOCYTES % (AUTO) 23 % (22-44); MD NO; MEAN CORPUSCULAR HEMOGLOBIN 32.7 pg (27.0-34.8); MEAN CORPUSCULAR HGB CONC 34.8 g/dL (32.4-35.8); MONOCYTES # (AUTO) 0.19 x10^3/uL (0.2-0.8); MONOCYTES % (AUTO) 5 % (2-9); NEUTROPHILS # (AUTO) 2.44 x10^3/uL (1.8-6.8); NEUTROPHILS % (AUTO) 69 % (42-75); PLATELET COUNT 223 x10^3/uL (130-400); RED BLOOD COUNT 4.04 x10^6/uL (3.82-5.3); RED CELL DISTRIBUTION WIDTH 14.8 % (9.6-15.2)
[2018-01-18 07:25] VITALS: BP 129/76
[2018-01-18] MEDS ORDERED: PANTOPROZOLE 40MG TABLET PO SCH (07:30)
[2018-01-18] MEDS: THIAMINE 100MG TABLET PO SCH (10:02)
[2018-01-18 15:40] VITALS: BP 130/84
[2018-01-18] MEDS: ENOXAPARIN 40 MG/0.4 ML SQ SCH (16:30)
[2018-01-18] MEDS: NICOTINE 7 MG/24 HR PATCH.TD24 TD SCH (16:52)
[2018-01-18] MEDS ORDERED: POTASSIUM CHLORIDE 20 MEQ TAB.ER.PRT PO ONE (17:30)
[2018-01-18 20:00] VITALS: BP 129/88
[2018-01-19 04:55] VITALS: BP 121/85
[2018-01-19] MEDS: GUAIFENESIN 200 MG TABLET PO SCH ×2 (05:02→09:57)
[2018-01-19 06:02] LABS: CHLORIDE 106 mmol/L (98-107)
[2018-01-19 06:09] LABS: ANION GAP 8 mmol/L (5-15); CALCIUM 9.1 mg/dL (8.5-10.1); CREATININE 0.45 mg/dL (0.55-1.02)
[2018-01-19 07:07] VITALS: BP 122/81
[2018-01-19] MEDS: THIAMINE 100MG TABLET PO SCH (09:57)
== END 2018-01-19 14:05 | disposition home or self-care (01) | DRG 433 ==
LOC: ED 14:53 → EDIP 16:00 → 4WST 18:08 → DCLOUNGE 01-19 13:49
PROVIDERS: ADMIT Internal Medicine; ATTEND Internal Medicine
DX: K70.10 Alcoholic hepatitis without ascites (principal); F10.239 Alcohol dependence with withdrawal, unspecified; E83.39 Other disorders of phosphorus metabolism; K72.90 Hepatic failure, unspecified without coma; E83.42 Hypomagnesemia; E86.0 Dehydration; E87.6 Hypokalemia; F17.200 Nicotine dependence, unspecified, uncomplicated; F19.94 Other psychoactive substance use, unspecified with psychoactive substance-induced mood disorder; R79.89 Other specified abnormal findings of blood chemistry; K74.60 Unspecified cirrhosis of liver; F32.9 Major depressive disorder, single episode, unspecified; Y90.2 Blood alcohol level of 40-59 mg/100 ml; Z91.19 Patient's noncompliance with other medical treatment and regimen; Z71.41 Alcohol abuse counseling and surveillance of alcoholic; Z71.6 Tobacco abuse counseling
CPT/HCPCS: 36415; 99285; J7042; 80048; 80053; 80307; 82140; 83690; 83735; 84100; 84703; 85025; 96372; 96374; 96375; 96376; J1650; J2405; J2550; J3411; J3475; J3480; C9113; J2060; J7030; J7040; J7050

== ENCOUNTER 2018-09-19 23:55 | Emergency (ER) | payer MEDICAID ==
[~2018-09-19] VITALS: Ht 160 cm; Wt 61.0 kg
[2018-09-19 23:57] VITALS: BP 113/70
--- NOTE | 2018-09-20 01:36 | NUR ---
pt called to room from lobby, reg stated she left out the door. lwbs
== END 2018-09-20 01:38 | disposition left against medical advice (07) ==
LOC: ED 09-20 01:32
DX: R10.30 Lower abdominal pain, unspecified (principal); Z53.21 Procedure and treatment not carried out due to patient leaving prior to being seen by health care provider

== ENCOUNTER 2018-12-15 12:00 | Emergency (ER) | payer MEDICAID ==
[~2018-12-15] VITALS: Ht 160 cm; Wt 57.6 kg
[2018-12-15] MEDS ORDERED: LORazepam 2 MG/ML, 1ML ONE (12:23)
[2018-12-15] MEDS ORDERED: ONDANSETRON 2MG/ML, 2ML ONE (12:24)
[2018-12-15] MEDS ORDERED: THIAMINE 100 MG/ML, 2ML ONE (12:25)
[2018-12-15] MEDS ORDERED: SODIUM CHLORIDE FLUSH 10ML SYR IVF ONE (12:30)
[2018-12-15] MEDS ORDERED: ONDANSETRON 2MG/ML, 2ML IVPush ONE (12:30)
[2018-12-15] MEDS ORDERED: LORazepam 2 MG/ML, 1ML IVPush PRN (12:30)
[2018-12-15] MEDS ORDERED: SODIUM CHLORIDE 0.9% 1,000ML IVBOLUS ONE ×2 (12:30→16:30)
[2018-12-15] MEDS ORDERED: THIAMINE 100 MG/ML, 2ML IM ONE (12:30)
--- NOTE | 2018-12-15 12:30 | NUR ---
Patient to room; into gown; c/o withdrawing from alcohol; reports has been hosptalized for this before; Dr. Ponce to bedside; physician assessment complete; received orders for medications. IV started and labs drawn per protocol. Medications given per JUL. Awaiting lab results.
[2018-12-15 12:44] LABS: BASOPHILS # (AUTO) 0.02 x10^3/uL (0-0.1); BASOPHILS % (AUTO) 1 % (0-1); EOSINOPHILS % (AUTO) 0 % (1-7); LYMPHOCYTES # (AUTO) 0.68 x10^3/uL (1-3.4); LYMPHOCYTES % (AUTO) 15 % (22-44); MD NO; MEAN CORPUSCULAR HEMOGLOBIN 31.5 pg (27.0-34.8); MEAN CORPUSCULAR VOLUME 92.5 fL (80-100); MEAN PLATELET VOLUME 7.2 fL (7.4-10.4); MONOCYTES # (AUTO) 0.42 x10^3/uL (0.2-0.8); MONOCYTES % (AUTO) 9 % (2-9); NEUTROPHILS # (AUTO) 3.39 x10^3/uL (1.8-6.8); NEUTROPHILS % (AUTO) 75 % (42-75); PLATELET COUNT 182 x10^3/uL (130-400); RED BLOOD COUNT 4.69 x10^6/uL (3.82-5.3)
[2018-12-15 12:54] LABS: ALANINE AMINOTRANSFERASE 68 U/L (12-78); ALBUMIN 4.7 g/dL (3.4-5.0); ANION GAP 18 mmol/L (5-15); CALCIUM 9.1 mg/dL (8.5-10.1); CHLORIDE 94 mmol/L (98-107); CREATININE 0.62 mg/dL (0.55-1.02)
[2018-12-15 12:59] LABS: ALKALINE PHOSPHATASE 92 U/L (45-117); BILIRUBIN,TOTAL 0.8 mg/dL (0.2-1.0); TOTAL PROTEIN 8.9 g/dL (6.4-8.2)
--- NOTE | 2018-12-15 13:41 | NUR ---
Patient resting in room comfortably; decreased nausea and tremors; solorio still present; IVF fluids started; patient remains hypotensive (73/45) asymptomatic; Dr Ponce to bedside to update on POC; MD aware of VS; plan to recheck after bolus. New orders received for CT. Awaiting imaging.
--- NOTE | 2018-12-15 14:03 | NUR ---
Patient presentation inconsistent with BP from monitor; recheck of VS 130/[address] Ponce; included estimated bolus amount. No orders received. Addendum: 12/15/18 at 1404 by SUSIE VSS; awaiting CT.
--- NOTE | 2018-12-15 14:22 | NUR ---
Pt to ct
--- NOTE | 2018-12-15 14:33 | NUR ---
Patient back from CT; received orders for U/A; patient given ua cup and given instructions on clean catch. pt verbalized understanding. Awating Ct results
--- NOTE | 2018-12-15 15:07 | NUR ---
Magy burroughs in ED - 12/15/18 at 1508 by SUSIE Manual blood pressure complete VSS; awaiting imaging results.
--- NOTE | 2018-12-15 15:08 | NUR ---
Patient ambulated to bathroom with steady gate; urine sent to lab; awaiting results. IVF still infusing. VSS.
--- NOTE | 2018-12-15 15:32 | NUR ---
RN to bedside; IVF complete; f/u blood pressure manual; completed by tech VSS ([id number]) awaiting urine.
[2018-12-15 15:57] LABS: MICROSCOPIC INDICATED
[2018-12-15 15:59] LABS: CULTURE INDICATED? YES
[2018-12-15 16:14] VITALS: BP 115/75
--- NOTE | 2018-12-15 16:15 | NUR ---
ORTHOSTATIS VS COMPLETED. DR. TURNER UPDATED. NEW ORDERS FOR ADDITIONAL 1L S BLUS RECEIVED. WILL START IVF.
--- NOTE | 2018-12-15 16:26 | NUR ---
APLE JUICE AND CRACKERS PROVIDED PER REQUEST AFTER OK FROM DR. TURNER. PT REPORTS DECREASE IN NAUSEA AND IS THANKFUL FOR SNACKS. VSS. NO OTHER NEEDS EXPRESSED.
== END 2018-12-15 18:09 | disposition home or self-care (01) ==
LOC: ED 14:08
DX: K29.01 Acute gastritis with bleeding (principal); R10.84 Generalized abdominal pain; R11.2 Nausea with vomiting, unspecified; F32.9 Major depressive disorder, single episode, unspecified
CPT/HCPCS: 36415; 74177; 80053; 81001; 83690; 84703; 85025; 87086; 93005; 96361; 96372; 96374; 96375; 99284; J2060; J2405; J3411; J7030

== ENCOUNTER → 2020-10-11 | Outpatient (CLI) | payer MEDICAID ==
[~2020-10-11] MED LIST changes: +ACET500T64 PO; -ACET500T71 PO; -FOLI-17 PO; +FOLI1TAB32 PO; -IBUP-1484 PO; +IBUP-1902 PO; +MULT-449 PO; -MULT1TAB60 PO; +OMNIPAQUE 350 MG/ML, 100ML BOTTLE ONE
== END | disposition home or self-care (01) ==
LOC: CFH 10:35
PROVIDERS: ATTEND Nurse Practitioner Family
DX: R10.31 Right lower quadrant pain (principal); G89.29 Other chronic pain; R10.10 Upper abdominal pain, unspecified; N93.9 Abnormal uterine and vaginal bleeding, unspecified; E55.9 Vitamin D deficiency, unspecified; D50.0 Iron deficiency anemia secondary to blood loss (chronic); L65.9 Nonscarring hair loss, unspecified; E78.2 Mixed hyperlipidemia
CPT/HCPCS: 74177; Q9967